=== PATIENT | female | born 1935 | race Caucasian/White ===

== ENCOUNTER → 2016-11-16 | Outpatient (CLI) | payer MEDICARE, BC ==
[~2016-11-16] MED LIST: ARICEPT PO; ASPIRIN81 MG PO; ATENOLOL PO; ATENOLOL25 MG PO; BACLOFEN5 GM PO; CARAFATE1 G PO; DONEPEZIL HCL10 MG PO; ELIQUIS2.5 MG PO; ELIQUIS5 MG PO; FLECAINIDE ACET50 MG PO; HYDROCODON-ACE1 EACH; HYDROCODONE-APA1 T41 PO; HYDROXYZINE HCL10 MG PO; LEVOTHYROXINE112 MCG PO; LEVOXYL75 MCG PO; LOPID600 MG PO; LOTREL 10-20 MG1 CAP PO; LOTREL 5-40 MG1 EACH PO; LOTREL 5/40 MG1 CAP PO; LOTREL PO; METOPROLOL SUCC25 MG PO; METOPROLOL TAR25 MG PO; MONTELUKAST SOD10 MG PO; NAMENDA10 MG PO; NILSTAT; OMEPRAZOLE20 M1 PO; OMEPRAZOLE20 M2; PANTOPRAZOLE SO40 MG PO; PHENERGAN PO; PRADAXA75 MG PO; PROMETHAZINE HC25 MG PO; PROTONIX PO; SINGULAIR PO; SYNTHROID PO; SYNTHROID0.1 MG PO; SYNTHROID112 MCG PO; TAMBOCAR PO; WELCHOL625 MG PO; ZOFRAN ODT4 MG PO
--- NOTE | ~2016-11-16 | US77 ---
[facility] A Service of [facility] & [facility] RADIOLOGY TEXT RESULTS PATIENT: ALEX LLANES LOCATION: [facility] : 39 UNIT #: [id number] AGE: [address]: Mike Whittington MD SEX: F ORDER DR: [id number] [facility] [address] [place], [place] [address] [id number] O MR#: [id number] Acc #: [id number] NAME: ALEX LLANES : 1935 SEX: F STUDY DATE/TIME: 11/16/2016 14:26 UNIT: [facility] ROOM: STUDY DESCRIPTION: US Kidney Bilateral Complete Attending Physician: Mike Whittington Jr., M.D. Ordering Physician: Mike Whittington Jr., M.D. Primary Care Physician: No Primary Care Physician MEDICAL IMAGING REPORT This report is preliminary unless electronic signature is present EXAM Renal ultrasound. INDICATION Not urinating as often or as much for 1 week. TECHNIQUE Patrick-scale and color Doppler sonographic images were obtained through the kidneys and bladder. FINDINGS The right kidney measures 8.7 x 2.8 x 4.3 cm. Certified Medical Biller only measures the cortex at about 7 mm. However, I think the apparent thinning actually may be simply due to director of marketing [employer] technique than truly thinning of the cortex. I measure it in another area at up to about a centimeter. Left kidney measures 11.1 x 3.7 x 5.2 cm and again visually the cortex really does not appear that thin. No solid or cystic renal masses are seen and there is no hydronephrosis. The urinary bladder is decompressed. IMPRESSION Certified Medical Biller measures the cortex at only about 7 mm on the right, however, I think the appearance is probably due to technique rather than to true thinning of the cortex. No solid or cystic renal masses are seen and there is no hydronephrosis. The bladder is not well seen as it is decompressed. Dictated by... Monet Wood M.D. THIS IS AN ELECTRONICALLY VERIFIED REPORT Monet Wood M.D. at 11/17/2016 4:51 PM [facility] A Service of [facility] & [facility] RADIOLOGY TEXT RESULTS PATIENT: ALEX LLANES LOCATION: [facility] #: [id number] : 39 UNIT #: [id number] AGE: [address]: Mike Whittington MD SEX: F ORDER DR: Lydia TD: 11/16/2016 17:18 JOB #: [id number] MEDICAL IMAGING REPORT Page 1 of 1 COPY
== END | disposition home or self-care (01) ==
LOC: CGUS 14:09
DX: R79.89 Other specified abnormal findings of blood chemistry (principal)
CPT/HCPCS: 76770

== ENCOUNTER 2017-03-09 09:45 | Emergency (ER) | payer MEDICARE, BC ==
[~2017-03-09 09:45] MED LIST changes: -HYDROXYZINE HCL10 MG PO; -LEVOXYL75 MCG PO; -METOPROLOL SUCC25 MG PO; -METOPROLOL TAR25 MG PO; -NAMENDA10 MG PO; -NILSTAT; -OMEPRAZOLE20 M1 PO; -PRADAXA75 MG PO
[2017-03-09] MEDS ORDERED: OMEPRAZOLE20 M1 PO (10:05)
[2017-03-09] MEDS ORDERED: NAMENDA10 MG PO (10:05)
[2017-03-09] MEDS ORDERED: METOPROLOL SUCC25 MG PO (10:05)
[2017-03-09] MEDS ORDERED: PRADAXA75 MG PO (10:06)
[2017-03-09] MEDS ORDERED: HYDROXYZINE HCL10 MG PO (10:08)
[2017-04-11] MEDS ORDERED: METOPROLOL TAR25 MG PO (06:55)
[2017-04-11] MEDS ORDERED: LEVOXYL75 MCG PO (06:58)
[2017-04-11] MEDS ORDERED: LOPID600 MG PO (07:03)
[2017-04-11] MEDS ORDERED: NILSTAT (09:19)
== END 2017-03-09 10:34 | disposition home or self-care (01) ==
LOC: SED 09:45
DX: L25.9 Unspecified contact dermatitis, unspecified cause (principal); I10 Essential (primary) hypertension; Z90.49 Acquired absence of other specified parts of digestive tract; Z90.89 Acquired absence of other organs; Z79.899 Other long term (current) drug therapy; Z88.0 Allergy status to penicillin; Z88.8 Allergy status to other drugs, medicaments and biological substances
CPT/HCPCS: 99282

== ENCOUNTER → 2017-04-11 | Day surgery (SDC) | payer MEDICARE, BC ==
[~2017-04-11] MED LIST changes: +HYDROXYZINE HCL10 MG PO; +LEVOXYL75 MCG PO; +METOPROLOL SUCC25 MG PO; +METOPROLOL TAR25 MG PO; +NAMENDA10 MG PO; +NILSTAT; +OMEPRAZOLE20 M1 PO; +PRADAXA75 MG PO
--- NOTE | ~2017-04-11 | OR ---
Unit #: [id number] #: [id number] Patient: ALEX LLANES [id number] [address] [place], [place] [address] [id number] O MR#: [id number] NAME: ALEX LLANES ROOM: Date of Procedure: 04/11/2017 Admission Date: 04/11/2017 Surgeon: Joel Byrne M.D. : 1935 Attending Physician: Joel Byrne M.D. Primary Care Physician: Mike Whittington Jr., M.D. OPERATIVE REPORT PROCEDURE PERFORMED Esophagogastroduodenoscopy to descending duodenum with biopsy and balloon dilatation. INDICATIONS FOR PROCEDURE A 81-year-old female with dysphagia, weight loss, undergoing evaluation with upper endoscopy. MEDICATIONS Monitored anesthesia. POSTOPERATIVE FINDINGS 1. Molly esophagitis involving the mid and distal esophagus. Biopsies taken. 2. Esophageal ring dilated to 18 mm with balloon. 3. Mild chronic gastritis. Biopsies taken. 4. Normal duodenum and distal duodenum. PLAN Continue with PPI therapy, nystatin swish and swallow. Followup on pathology report. DESCRIPTION OF PROCEDURE The patient was explained of the procedure, risks, and benefits along with risks and benefits of anesthesia. She was brought to the endoscopy room. Propofol anesthesia was given. Bite block was placed. Scope was passed down the mouth into esophagus, stomach, duodenum, and distal duodenum. Findings as described. Biopsies taken. Dilation was carried with an esophageal ring successfully. Gently, the scope was pulled out. She tolerated it well. No major complications were seen. Dictated by... Dread Tay/densie TD: 04/25/2017 16:29 JOB #: [id number] Unit #: [id number] #: [id number] Patient: ALEX LLANES OPERATIVE REPORT Page 1 of 1 X Joel Byrne MD X PROCEDURE OPERATIVE NOTE
== END | disposition home or self-care (01) ==
LOC: COPS 06:07
DX: K29.50 Unspecified chronic gastritis without bleeding (principal); K22.2 Esophageal obstruction; B37.81 Candidal esophagitis; E03.9 Hypothyroidism, unspecified; I48.91 Unspecified atrial fibrillation; K21.9 Gastro-esophageal reflux disease without esophagitis; Z87.440 Personal history of urinary (tract) infections; Z88.0 Allergy status to penicillin; Z88.1 Allergy status to other antibiotic agents; Z79.899 Other long term (current) drug therapy; Z90.49 Acquired absence of other specified parts of digestive tract; Z98.890 Other specified postprocedural states
CPT/HCPCS: 88305; 88312

== ENCOUNTER → 2017-04-18 | Outpatient (CLI) | payer MEDICARE, BC ==
--- NOTE | ~2017-04-18 | CT4 ---
[facility] A Service of [facility] & [facility] RADIOLOGY TEXT RESULTS PATIENT: ALEX LLANES LOCATION: [facility] : 39 UNIT #: [id number] AGE: [address]: Mike Whittington MD SEX: F ORDER DR: [id number] [facility] [address] [place], [place] [address] [id number] O MR#: [id number] Acc #: [id number] NAME: ALEX LLANES : 1935 SEX: F STUDY DATE/TIME: 04/18/2017 11:34 UNIT: [facility] ROOM: STUDY DESCRIPTION: CT Abd and Pelv Wo Cont Attending Physician: Mike Whittington Jr., M.D. Referring Physician: Mike Whittington Jr., M.D. Ordering Physician: Mike Whittington Jr., M.D. Primary Care Physician: Mike Whittington Jr., M.D. MEDICAL IMAGING REPORT This report is preliminary unless electronic signature is present EXAM CT abdomen and pelvis without contrast. DATE 04/18/2017 HISTORY Physician's history states abdominal pain and weight loss. Patient states abdominal pain greatest in the mid to upper abdomen with weight loss for 4 months. 15 pound weight loss in 1 month. Additional history of cardiac disease, hypertension. Previous appendectomy and cholecystectomy. COMPARISON Bilateral renal ultrasound 11/16/2016. CT chest and abdomen with IV contrast 01/06/2011. PROCEDURE 5 mm noncontrast axial images through the abdomen and pelvis. Enteric contrast not administered. Sagittal and coronal reformatted images were obtained. This CT exam was performed with one or more of the following radiation dose reduction techniques: automatic exposure control, adjustment of mA and/or kV according to patient size, and iterative reconstruction. FINDINGS ABDOMEN FINDINGS: The lung bases are clear. Benign calcified granuloma is present within the left lower lobe. The noncontrast appearance of the liver, spleen, adrenals, and kidneys is within normal limits. The pancreas is atrophic. The gallbladder is surgically absent and no abnormal biliary dilation is seen. No free air, free fluid, or adenopathy is identified. No soft tissue mass is identified on this noncontrast exam. The appendix, by history, is surgically absent. Unopacified bowel STS. [facility] A Service of [facility] RADIOLOGY TEXT RESULTS PATIENT: ALEX LLANES LOCATION: [facility] : 39 UNIT #: [id number] AGE: [address]: Mike Whittington MD SEX: F ORDER DR: appears nonthickened and noninflamed. PELVIS FINDINGS: Uterus, urinary bladder, and rectum are within normal limits. Small phleboliths are present bilaterally. No adenopathy or free fluid or soft tissue mass is seen. Degenerative disc changes and degenerative facet changes are present within the lumbar spine. No acute or suspicious osseous abnormalities are evident. IMPRESSION 1. No acute findings in the abdomen or pelvis. No evidence of malignancy on this noncontrast exam. 2. Cholecystectomy and appendectomy. 3. Degenerative changes in the lumbar spine. 4. Moderate calcific atherosclerosis in the infrarenal abdominal aorta. Dictated by... Nayeli Stratton M.D. THIS IS AN ELECTRONICALLY VERIFIED REPORT Nayeli Stratton M.D. at 04/19/2017 8:49 AM SVETA/roseann TD: 04/18/2017 17:01 JOB #: [id number] MEDICAL IMAGING REPORT Page 1 of 1 COPY
== END | disposition home or self-care (01) ==
LOC: CCAT 10:00
DX: R10.9 Unspecified abdominal pain (principal); R63.4 Abnormal weight loss; I70.0 Atherosclerosis of aorta; M47.896 Other spondylosis, lumbar region; Z90.49 Acquired absence of other specified parts of digestive tract
CPT/HCPCS: 74176